=== PATIENT | female | born 1990 | race Caucasian/White ===

== ENCOUNTER 2017-03-19 20:46 | Emergency (ER) | payer MEDICAID, OTHER ==
[2017-03-19 21:05] VITALS: BP 124/91
--- NOTE | 2017-03-19 21:14 | EDM.PDOC ---
ED HPI GENERAL MEDICAL PROBLEM - General Chief Complaint: Lower Extremity Injury/Pain Stated Complaint: LOWER RIGHT LEG PROBLEMS Time Seen by Provider: 03/19/17 21:14 Source of Information: Reports: Patient History Limitations: Reports: No Limitations - History of Present Illness INITIAL COMMENTS - FREE TEXT/NARRATIVE: 26-year-old female attends the ED with concerns of painful right calf and perhaps right lower extremity swelling. She states she was just to [place] over the holidays but no prolonged travel. No history of DVT. She is not on control. Anus worse with walking and particularly going upstairs i.e. significant dorsiflexion of the foot. Also pain when she was kneeling with her buttock on the calf. Came to the ED to make sure that she did not have a blood clot in her leg. She has no signs or symptoms of pulmonary problems with cough pleuritic chest pain or hemoptysis. Onset: Gradual Onset Date: 03/17/17 Duration: Day(s): Location: Reports: Lower Extremity, Right Quality: Reports: Ache (Pain in the right calf over the last 2 and half days. 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: Acetaminophen, NSAIDS Right Leg Pain Score (Numeric/FACES): 3 - Related Data Allergies Allergy/AdvReac Type Severity Reaction Status Date / Time Sulfa (Sulfonamide Allergy Rash Verified 03/19/17 20:56 Antibiotics) sulfamethoxazole Allergy Rash Verified 03/19/17 20:56 [From Bactrim] trimethoprim [From Bactrim] Allergy Rash Verified 03/19/17 20:56 Home Meds: Home Meds Albuterol [Proair HFA] 2 puff INH ASDIRECTED 10/22/14 [History] Buprenorphine [Subutex] 8 mg PO ASDIRECTED 10/22/14 [History] Acetaminophen [Tylenol] 650 mg PO Q6H PRN #0 tablet 05/26/15 [Rx] Ibuprofen [Motrin] 200 - 600 mg PO Q6H PRN #0 tablet 05/26/15 [Rx] Past Medical History - Past Health History Medical/Surgical History: Denies Medical/Surgical History HEENT History: Reports: Impaired Vision Respiratory History: Reports: Asthma Other Respiratory History: Smoker, uses ProAir inhaler approx weekly. [employer] History: Reports: Other OB/BYN History: IUD taken out about 1.5 months ago no period since. Neurological History: Reports: Migraines Psychiatric History: Reports: Addiction, Anxiety Other Psychiatric History: Uses Bupenorphine to prevent cravings. Has used such for 3+ years. Denies relapse. Endocrine/Metabolic History: Reports: Hypothyroidism Other Endocrine/Metabolic History: Diagnosed low thyroid during this - Infectious Disease History Infectious Disease History: Reports: Hepatitis C - Past Surgical History Respiratory Surgical History: Reports: None Endocrine Surgical History: Reports: None Dermatological Surgical History: Reports: None Social & Family History - Family History Family Medical History: Noncontributory - Tobacco Use Smoking Status *Q: Current Every Day Smoker Years of Tobacco use: 10 Packs/Tins Daily: 1 Used Tobacco, but Quit: No Second Hand Smoke Exposure: Yes - Caffeine Use Caffeine Use: Reports: Coffee, Energy Drinks, Soda, Tea - Recreational Drug Use Recreational Drug Use: No Drug Use in Last 12 Months: No Recreational Drug Type: Reports: Methamphetamine Recreational Drug Use Frequency: Not Used In Over 6 Months Recreational Drug Last Use: >5 years ago - Living Situation & Occupation Living situation: Reports: Single Occupation: Unemployed Review of Systems - Review of Systems Review Of Systems: See Below Constitutional: Reports: No Symptoms Eyes: Reports: No Symptoms Ears: Reports: No Symptoms Nose: Reports: No Symptoms Mouth/Throat: Reports: No Symptoms, Difficulty Swallowing Cardiovascular: Reports: No Symptoms GI/Abdominal: Reports: No Symptoms Genitourinary: Reports: No Symptoms Musculoskeletal: Reports: Muscle Pain Skin: Reports: No Symptoms Neurological: Reports: No Symptoms (Right calf. See history of present illness) Psychiatric: Reports: No Symptoms ED EXAM, GENERAL - Physical Exam Exam: See Below Exam Limited By: No Limitations General Appearance: Alert, WD/WN, No Apparent Distress, Anxious (Mildly anxious) Respiratory/Chest: No Respiratory Distress, Lungs Clear, No Accessory Muscle Use , Respiratory Distress (Mild tachypnea at rest 22/m with O2 sats of 99%. I believe this is due to being a little anxious.) Cardiovascular: Normal Peripheral Pulses, Regular Rate, Rhythm, No Edema, No Gallop, No Murmur Extremities: Other (Examination of her lower extremities show the right leg to be perhaps a little larger than the left. However there is no true edema of the right leg. On examination of the right leg pain is localized to the medial aspect of the gastrocnemius muscle on repeated squeezing of this area. Doppler ultrasound carried out of the bedside by myself did not reveal any sign of DVT with normal compressibility and flow on color Motrin.) Neurological: Alert, Oriented, CN II-XII Intact, Normal Cognition Psychiatric: Normal Affect, Normal Mood Skin Exam: Warm, Dry, Intact, Normal Color, No Rash Course - Vital Signs Last Recorded V/S: Last Vital Signs Temp 36.6 C 03/19/17 21: Pulse 83 03/19/17 21: Resp 22 H 03/19/17 21:02 BP 124/91 H 03/19/17 21: Pulse Ox 99 03/19/17 21:02 - Radiology Interpretation Free Text/Narrative:: 26-year-old female presents to the ED for evaluation of right calf pain. Developed is gradually over the last 2-2 and half days. She appreciates pain with dorsiflexion of the ankle particularly walking up stairs. Examination reveals pain localized to the gastrocnemius muscle medially towards the midline mid calf. There is no significant swelling it with good pulses to the foot. Doppler ultrasound bedside by me did not reveal any sign of DVT. Only the veins below the knee were ultrasounded. She reassured calf muscle strain. Motrin 600 mg every 6 hours when necessary as needed for pain relief and heat to the area as needed. Expect gradual improvement over the next 5-7 days. Departure - Departure Time of Disposition: 21:34 Disposition: Home, Self-Care 01 Condition: Fair Clinical Impression: Strain of calf muscle Qualifiers: Encounter type: initial encounter Laterality: right Qualified Code(s): S86.811A - Strain of other muscle(s) and tendon(s) at lower leg level, right leg , initial encounter - Discharge Information Referrals: Nhung Guy PA-C [Primary Care Provider] - Forms: ED Department Discharge Additional Instructions: Evaluation the emergency room tonight in regards to pain in the right calf that is developed over the last few days. Noted particularly in the mid calf with dorsiflexion of the foot and walking and particularly going upstairs. No known injuries. No recent prolonged travel. No history of blood clots in the legs in the past. Examination localizes pain to the medial gastrocnemius muscle near the midline of the calf. Ultrasound performed at the bedside did not show any evidence of blood clots in the deep venous system. Therefore the injury is to calf muscle strain. This usually take 7-10 days to heal. Should you need to be be a leg a bit in terms of not overuse it he pack to the area for one half hour out of every 44-5 hours. Motrin 600 mg every 6 hours or Aleve 2 tablets every 8 hours for pain relief if needed. Expect gradual improvement over the next 5-10 days.
== END 2017-03-19 21:42 | disposition home or self-care (01) ==
LOC: JD.ED 20:46
DX: S86.811A Strain of other muscle(s) and tendon(s) at lower leg level, right leg, initial encounter (principal); J45.909 Unspecified asthma, uncomplicated; E03.9 Hypothyroidism, unspecified; F17.210 Nicotine dependence, cigarettes, uncomplicated; Z88.1 Allergy status to other antibiotic agents; Z88.2 Allergy status to sulfonamides; Z86.718 Personal history of other venous thrombosis and embolism; X58.XXXA Exposure to other specified factors, initial encounter; Y93.01 Activity, walking, marching and hiking
CPT/HCPCS: 99283

== ENCOUNTER 2019-12-14 08:40 | Emergency (ER) | payer OTHER ==
--- NOTE | 2019-12-14 09:57 | EDM.PDOC ---
ED HPI GENERAL MEDICAL PROBLEM - General Chief Complaint: Respiratory Problem Stated Complaint: SOB Time Seen by Provider: 12/14/19 09:46 - History of Present Illness INITIAL COMMENTS - FREE TEXT/NARRATIVE: 29-year-old female presents the emergency room with shortness of breath. Patient has known history of asthma she uses Advair and an albuterol rescue inhaler. None of this seems to be helping. Onset of this was a couple of days ago progressively getting worse. Patient has some chest pressure associated with this. The patient last had a severe asthma attack in March after she was diagnosed with pneumonia she was treated for asthma and pneumonia as an outpatient but her breathing continued to get worse and ultimately she needed to be admitted for this. Patient is unclear of her status she is trying to get but she has not missed any periods as of yet. She has been a little achy but denies fevers or chills no lost of taste or smell no abdominal symptoms. - Related Data Allergies Allergy/AdvReac Type Severity Reaction Status Date / Time Sulfa (Sulfonamide Allergy Rash Verified 12/14/19 08:50 Antibiotics) sulfamethoxazole Allergy Rash Verified 12/14/19 08:50 [From Bactrim] trimethoprim [From Bactrim] Allergy Rash Verified 12/14/19 08:50 Home Meds: Home Meds Albuterol [Proair HFA] 2 puff INH ASDIRECTED 10/22/14 [History] Buprenorphine [Subutex] 8 mg PO ASDIRECTED 10/22/14 [History] Ibuprofen [Motrin] 200 - 600 mg PO Q6H PRN #0 tablet 05/26/15 [Rx] Budesonide [Pulmicort Flexhaler] 1 inhalation INH BID 12/14/19 [History] Fluticasone Propion/Salmeterol [Advair 250-50 Diskus] 1 inhalation PO BID 12/14/19 [History] predniSONE [Prednisone] 20 mg PO Q24H #15 tablet 12/14/19 [Rx] Past Medical History HEENT History: Reports: Impaired Vision Cardiovascular History: Reports: None Respiratory History: Reports: Asthma, TB Other Respiratory History: Smoker [employer] History: Reports: Spontaneous Neurological History: Reports: Migraines Psychiatric History: Reports: Addiction, Anxiety Other Psychiatric History: Uses Bupenorphine to prevent cravings. Has used such for 3+ years. Denies relapse. - Infectious Disease History Infectious Disease History: Reports: Shingles - Past Surgical History Female Surgical History: Reports: D&C Social & Family History - Family History Family Medical History: Noncontributory - Tobacco Use Smoking Status *Q: Current Every Day Smoker Years of Tobacco use: 12 Packs/Tins Daily: 1 - Caffeine Use Caffeine Use: Reports: Soda - Recreational Drug Use Recreational Drug Use: No - Living Situation & Occupation Living situation: Reports: Single Occupation: Unemployed ED ROS GENERAL - Review of Systems Review Of Systems: See Below Constitutional: Denies: Fever, Chills HEENT: Reports: No Symptoms Respiratory: Reports: Shortness of Breath, Wheezing. Denies: Cough, Sputum Cardiovascular: Reports: No Symptoms Endocrine: Reports: No Symptoms GI/Abdominal: Reports: No Symptoms, Mucous in Stool Musculoskeletal: Reports: No Symptoms Skin: Reports: No Symptoms Neurological: Reports: No Symptoms Psychiatric: Reports: No Symptoms Hematologic/Lymphatic: Reports: No Symptoms Immunologic: Reports: No Symptoms ED EXAM, GENERAL - Physical Exam Exam: See Below Exam Limited By: No Limitations General Appearance: Alert, No Apparent Distress Head: Atraumatic, Normocephalic Neck: Normal Inspection, Supple, Non-Tender, Full Range of Motion Respiratory/Chest: No Respiratory Distress, Lungs Clear, Normal Breath Sounds Cardiovascular: Regular Rate, Rhythm, No Murmur, Other (Lower extremity edema that is very mild nonpitting) GI/Abdominal: Normal Bowel Sounds, Soft, Non-Tender Back Exam: Normal Inspection, Full Range of Motion. No: CVA Tenderness (L), CVA Tenderness (R) Extremities: Non-Tender, Pedal Edema (Mild nonpitting) Neurological: Alert, Oriented, Normal Cognition Psychiatric: Anxious (Mild this improved over time) EKG INTERPRETATION EKG Date: 12/14/19 Rhythm: NSR Reading: Normal P-Wave: Present QRS: Other (Normal with low voltage in the limb leads) ST-T: Normal QT: Normal Comparison: No Change (No significant change from 12/2014) Course - Vital Signs Last Recorded V/S: Last Vital Signs Temp 36.8 C 12/14/19 08:46 Pulse 57 L 12/14/19 12:29 Resp 16 12/14/19 12:29 BP 137/84 12/14/19 12:29 Pulse Ox 96 12/14/19 12:29 - Orders/Labs/Meds Orders: Active Orders 24 hr Category Date Time Status EKG Documentation Completion [RC] STAT Care 12/14/19 10:28 Active RT Aerosol Therapy [RC] ASDIRECTED Care 12/14/19 09:58 Active CORONAVIRUS COVID-19 PCR PHL Stat Lab 12/14/19 10:55 Received Sodium Chloride 0.9% [Normal Saline] 100 ml Med 12/14/19 12:00 Active IV ASDIRECTED Sodium Chloride 0.9% [Saline Flush] Med 12/14/19 11:52 Active 10 ml FLUSH ONETIME PRN Medication Orders Sodium Chloride (Normal Saline) 100 mls @ 75 mls/hr IV ASDIRECTED LUDWIG Last Admin: 12/14/19 12:07 Dose: 75 mls/hr Documented by: JOHN Sodium Chloride (Saline Flush) 10 ml FLUSH ONETIME PRN PRN Reason: IV FLUSH Last Admin: 12/14/19 12:07 Dose: 10 ml Documented by: JOHN Labs: Laboratory Tests 12/14/19 12/14/19 12/14/19 Range/Units 10:47 10:47 10:47 WBC 6.56 (3.98-10.04) K/mm3 RBC 4.02 (3.98-5.22) M/mm3 Hgb 12.7 (11.2-15.7) gm/dl Hct 39.1 (34.1-44.9) % MCV 97.3 H D (79.4-94.8) fl MCH 31.6 (25.6-32.2) pg MCHC 32.5 (32.2-35.5) g/dl RDW Std Deviation 43.3 (36.4-46.3) fL Plt Count 201 (182-369) K/mm3 MPV 12.1 (9.4-12.3) fl Neut % (Auto) 57.2 (34.0-71.1) % Lymph % (Auto) 34.5 (19.3-51.7) % [place] % (Auto) 6.6 (4.7-12.5) % Eos % (Auto) 1.2 (0.7-5.8) Baso % (Auto) 0.3 (0.1-1.2) % Neut # (Auto) 3.76 (1.56-6.13) K/mm3 Lymph # (Auto) 2.26 (1.18-3.74) K/mm3 [place] # (Auto) 0.43 H (0.24-0.36) K/mm3 Eos # (Auto) 0.08 (0.04-0.36) K/mm3 Baso # (Auto) 0.02 (0.01-0.08) K/mm3 D-Dimer, Quantitative 0.87 H (0.19-0.50) mg/L Sodium (136-145) mEq/L Potassium (3.5-5.1) mEq/L Chloride (98-107) mEq/L Carbon Dioxide (21-32) mEq/L Anion Gap (5-15) BUN (7-18) mg/dL Creatinine (0.55-1.02) mg/dL Est Cr Clr Drug Dosing mL/min Estimated GFR (MDRD) (>60) mL/min BUN/Creatinine Ratio (14-18) Glucose (74-106) mg/dL Calcium (8.5-10.1) mg/dL Total Bilirubin (0.2-1.0) mg/dL AST (15-37) U/L ALT (14-59) U/L Alkaline Phosphatase (46-116) U/L Troponin I (0.00-0.056) ng/mL Total Protein (6.4-8.2) g/dl Albumin (3.4-5.0) g/dl Globulin gm/dL Albumin/Globulin Ratio (1-2) HCG, Qual Negative (NEGATIVE) 12/14/19 Range/Units 10:47 WBC (3.98-10.04) K/mm3 RBC (3.98-5.22) M/mm3 Hgb (11.2-15.7) gm/dl Hct (34.1-44.9) % MCV (79.4-94.8) fl MCH (25.6-32.2) pg MCHC (32.2-35.5) g/dl RDW Std Deviation (36.4-46.3) fL Plt Count (182-369) K/mm3 MPV (9.4-12.3) fl Neut % (Auto) (34.0-71.1) % Lymph % (Auto) (19.3-51.7) % [place] % (Auto) (4.7-12.5) % Eos % (Auto) (0.7-5.8) Baso % (Auto) (0.1-1.2) % Neut # (Auto) (1.56-6.13) K/mm3 Lymph # (Auto) (1.18-3.74) K/mm3 [place] # (Auto) (0.24-0.36) K/mm3 Eos # (Auto) (0.04-0.36) K/mm3 Baso # (Auto) (0.01-0.08) K/mm3 D-Dimer, Quantitative (0.19-0.50) mg/L Sodium 139 (136-145) mEq/L Potassium 4.2 (3.5-5.1) mEq/L Chloride 104 (98-107) mEq/L Carbon Dioxide 28 (21-32) mEq/L Anion Gap 11.2 (5-15) BUN 13 (7-18) mg/dL Creatinine 1.0 (0.55-1.02) mg/dL Est Cr Clr Drug Dosing 91.11 mL/min Estimated GFR (MDRD) > 60 (>60) mL/min BUN/Creatinine Ratio 13.0 L (14-18) Glucose 87 (74-106) mg/dL Calcium 9.0 (8.5-10.1) mg/dL Total Bilirubin 0.7 (0.2-1.0) mg/dL AST 23 (15-37) U/L ALT 46 (14-59) U/L Alkaline Phosphatase 54 (46-116) U/L Troponin I < 0.017 (0.00-0.056) ng/mL Total Protein 7.1 (6.4-8.2) g/dl Albumin 4.2 (3.4-5.0) g/dl Globulin 2.9 gm/dL Albumin/Globulin Ratio 1.5 (1-2) HCG, Qual (NEGATIVE) Meds: Medications Generic Name Dose Route Start Last Admin Trade Name Freq PRN Reason Stop Dose Admin Sodium Chloride 100 mls @ 75 mls/hr 12/14/19 12:00 12/14/19 12:07 Normal Saline IV 75 mls/hr ASDIRECTED LUDWIG Administration Sodium Chloride 10 ml 12/14/19 11:52 12/14/19 12:07 Saline Flush FLUSH 10 ml ONETIME PRN Administration IV FLUSH Discontinued Medications Generic Name Dose Route Start Last Admin Trade Name Minal PRN Reason Stop Dose Admin Albuterol/Ipratropium 3 ml 12/14/19 09:58 12/14/19 10:18 Duoneb 3.0-0.5 Mg/3 Ml NEB 12/14/19 09:59 3 ml ONETIME ONE Administration Sodium Chloride 500 mls @ 999 mls/hr 12/14/19 11:52 12/14/19 12:24 Normal Saline IV 12/14/19 12:22 999 mls/hr .BOLUS ONE Administration Iopamidol 100 ml 12/14/19 11:52 12/14/19 12:07 Isovue-370 (76%) IVPUSH 12/14/19 11:53 100 ml ONETIME ONE Administration Methylprednisolone Sodium Succinate 125 mg 12/14/19 09:58 12/14/19 10:24 Solu-Medrol IVPUSH 12/14/19 09:59 125 mg ONETIME ONE Administration - Re-Assessments/Exams Free Text/Narrative Re-Assessment/Exam: 12/14/19 12:00 Patient is doing better after a nebulizer treatment albeit it was not immediate. Her d-dimer came back elevated. She does note that she has had increasing lower extremity edema over the last month but this is not really painful. We will follow-up with a CTA hold off on the chest x-ray. COVID is pending as are routine labs. 12/14/19 13:31 CTA is unremarkable for PE or any other acute intrathoracic abnormality. She is noted to have a couple nodules in the right middle lobe it is recommended that she have a follow-up CT without contrast in 1 year I did discuss this with the patient. Patient is feeling much better and really wants to go home at this point we will discharge her on 60 mg of prednisone every morning for the next 5 mornings and then she is to use her albuterol nebulizer at home if her breathing gets worse she has not been using this and chose to use the albuterol inhaler. Departure - Departure Time of Disposition: 13:32 Disposition: Home, Self-Care 01 Clinical Impression: Exacerbation of asthma - Discharge Information Referrals: Malena,Nhung L, PA-C [Primary Care Provider] - Forms: ED Department Discharge Additional Instructions: Return to the emergency room with any questions problems or worsening symptoms. Use your albuterol nebulizer every 4-6 hours if needed and not get an adequate response from your handheld inhaler. You have been given a prescription for prednisone 60 mg every morning for the next 5 days and then stop this. Follow up with your regular healthcare provider the first of this next week for recheck. Discuss the need for a follow-up chest CT without contrast for the nodules seen on today's study. Do not take Naprosyn or ibuprofen while taking the prednisone Sepsis Event Note (ED) - Evaluation Sepsis Screening Result: No Definite Risk - Focused Exam Vital Signs: Vital Signs Temp Pulse Resp BP Pulse Ox Pulse Ox 12/14/19 12:29 57 L 16 137/84 96 12/14/19 10:19 97 12/14/19 08:46 36.8 C 74 22 H 143/101 H 99 - My Orders Last 24 Hours: My Active Orders 12/14/19 09:58 RT Aerosol Therapy [RC] ASDIRECTED 12/14/19 10:28 EKG Documentation Completion [RC] STAT 12/14/19 10:55 CORONAVIRUS COVID-19 PCR PHL Stat 12/14/19 11:52 Sodium Chloride 0.9% [Saline Flush] 10 ml FLUSH ONETIME PRN 12/14/19 12:00 Sodium Chloride 0.9% [Normal Saline] 100 ml IV ASDIRECTED - Assessment/Plan Last 24 Hours: My Active Orders 12/14/19 09:58 RT Aerosol Therapy [RC] ASDIRECTED 12/14/19 10:28 EKG Documentation Completion [RC] STAT 12/14/19 10:55 CORONAVIRUS COVID-19 PCR PHL Stat 12/14/19 11:52 Sodium Chloride 0.9% [Saline Flush] 10 ml FLUSH ONETIME PRN 12/14/19 12:00 Sodium Chloride 0.9% [Normal Saline] 100 ml IV ASDIRECTED
[2019-12-14] MEDS ORDERED: methylPREDNISolone Sodium Succinate 125 MG/2 ML SDV IVPUSH ONE (09:58)
[2019-12-14] MEDS ORDERED: Albuterol/Ipratropium 3.0-0.5 MG/3 ML Neb Soln NEB ONE (09:58)
[2019-12-14] MEDS ORDERED: Sodium Chloride 0.9% 500 ML IV ONE (11:52)
[2019-12-14] MEDS ORDERED: Sodium Chloride 0.9% 10 ML Syringe FLUSH PRN (11:52)
[2019-12-14] MEDS ORDERED: Iopamidol 755 Mg/ML 100 ML Bottle IVPUSH ONE (11:52)
[2019-12-14] MEDS ORDERED: Sodium Chloride 0.9% 100 ML IV SCH (12:00)
[2019-12-14 12:30] VITALS: BP 137/84; PULSE 57
--- NOTE | 2019-12-14 12:43 | CT ---
CT chest Technique: Multiple axial sections through the chest were obtained. Intravenous contrast was utilized. Study performed as a pulmonary angiogram protocol. Findings: Pulmonary arteries are well-opacified. No filling defects are seen to indicate pulmonary embolism. Aorta shows no aneurysm. No pericardial thickening is seen. Visualized upper abdominal structures show nothing acute. Mediastinum and hilar regions show no adenopathy. No axillary adenopathy is appreciated. 2 pulmonary nodules are noted within the right middle lobe with largest measuring 8 mm. No additional nodule is seen within either side of the chest. Slight scarring is felt to be present within the right middle lobe along the mediastinum. No acute parenchymal change is appreciated. Impression: 1. No findings of pulmonary embolism. 2. 2 nodules within the right middle lobe. Recommend follow-up chest CT without contrast in one year. 3. Nothing acute is appreciated on CT study of the chest. Diagnostic code #9 This report was dictated in MDT
== END 2019-12-14 13:52 | disposition home or self-care (01) ==
LOC: JD.ED 08:40
DX: J45.901 Unspecified asthma with (acute) exacerbation (principal); R60.0 Localized edema; R79.1 Abnormal coagulation profile; F17.210 Nicotine dependence, cigarettes, uncomplicated; Z88.2 Allergy status to sulfonamides; Z20.828 Contact with and (suspected) exposure to other viral communicable diseases
CPT/HCPCS: 36415; 71275; 80053; 84484; 84703; 85025; 85379; 87635; 93005; 94640; 96361; 96374; 99285; J2930; J7030; J7050; Q9967; 71046; 93010; 99283; J7620-GY; U0002

== ENCOUNTER 2019-12-18 12:53 | Emergency (ER) | payer OTHER ==
[2019-12-18 13:15] VITALS: BP 161/88; PULSE 58
--- NOTE | 2019-12-18 13:38 | EDM.PDOC ---
ED HPI GENERAL MEDICAL PROBLEM - General Chief Complaint: Respiratory Problem Stated Complaint: SOB Time Seen by Provider: 12/18/19 13:16 Source of Information: Reports: Patient History Limitations: Reports: No Limitations - History of Present Illness INITIAL COMMENTS - FREE TEXT/NARRATIVE: Patient is a 29-year-old female presenting to the emergency department with complaints of ongoing shortness of breath. She was seen in this emergency department 4 days ago with the same complaint. Lab work and CT angiogram of the chest, were completed and were found to be overall normal. She was COVID tested that day as well and found to be negative. She complains of feeling of tightness in her chest like it is hard to take a deep breath. She has generalized body aches as well as back pain. She has been taking prednisone 60 mg daily since her visit to the ER she feels that this did help with the lung symptoms. She no longer feels wheezy, however, she states she hurts all over. She describes pain in her chest wall that radiates into her mid-back. She also verbalizes that she has had problems with feelling bloated and feeling like she is retaining fluid. She denies any abdominal pain, nausea, vomiting, or diarrhea. She has had no known fevers that she is aware of. Patient does have a history of asthma for which she has been using her Pulmicort, Advair, and albuterol rescue inhaler. Vital signs on triage were stable. Blood pressure 161/88, pulse 58, respiratory rate 20, oxygen saturation 98% on room air. She was afebrile at 98.9. Treatments REFRIGERATION MANAGER: Reports: Other (see below) Other Treatments REFRIGERATION MANAGER: tylenol Middle Chest Pain Score (Numeric/FACES): 4 - Related Data Allergies Allergy/AdvReac Type Severity Reaction Status Date / Time Sulfa (Sulfonamide Allergy Severe Rash Verified 12/18/19 13:09 Antibiotics) sulfamethoxazole Allergy Severe Rash Verified 12/18/19 13:09 [From Bactrim] trimethoprim [From Bactrim] Allergy Severe Rash Verified 12/18/19 13:09 Home Meds: Home Meds Albuterol [Proair HFA] 2 puff INH ASDIRECTED 10/22/14 [History] Buprenorphine [Subutex] 8 mg PO TID 10/22/14 [History] Budesonide [Pulmicort Flexhaler] 1 inhalation INH BID 12/14/19 [History] Fluticasone Propion/Salmeterol [Advair 250-50 Diskus] 1 inhalation PO BID 12/14/19 [History] predniSONE [Prednisone] 20 mg PO Q24H #15 tablet 12/14/19 [Rx] Cyclobenzaprine [Flexeril] 5 mg PO Q8H PRN #10 tab 12/18/19 [Rx] Past Medical History HEENT History: Reports: Impaired Vision Cardiovascular History: Reports: None Respiratory History: Reports: Asthma, TB Other Respiratory History: Smoker 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 Has used such for 3+ years. Denies relapse. - Infectious Disease History Infectious Disease History: Reports: Shingles - Past Surgical History Female Surgical History: Reports: D&C Social & Family History - Family History Family Medical History: Noncontributory - Tobacco Use Smoking Status *Q: Current Every Day Smoker Years of Tobacco use: 12 Packs/Tins Daily: 0.5 - Caffeine Use Caffeine Use: Reports: Coffee, Energy Drinks, Soda, Tea - Recreational Drug Use Recreational Drug Use: No - Living Situation & Occupation Living situation: Reports: Single Occupation: Unemployed ED ROS GENERAL - Review of Systems Review Of Systems: See Below Constitutional: Reports: Fatigue. Denies: Fever, Chills HEENT: Reports: No Symptoms Respiratory: Reports: Shortness of Breath, Wheezing, Pleuritic Chest Pain Cardiovascular: Reports: Edema Endocrine: Reports: No Symptoms GI/Abdominal: Reports: No Symptoms : Reports: No Symptoms Musculoskeletal: Reports: Other (Back pain and generalized body aches.) Skin: Reports: No Symptoms Neurological: Reports: No Symptoms Psychiatric: Reports: No Symptoms Hematologic/Lymphatic: Reports: No Symptoms Immunologic: Reports: No Symptoms ED EXAM, GENERAL - Physical Exam Exam: See Below General Appearance: Alert, WD/WN, No Apparent Distress Respiratory/Chest: No Respiratory Distress, Lungs Clear, Normal Breath Sounds, No Accessory Muscle Use, Chest Non-Tender Cardiovascular: Normal Peripheral Pulses, Regular Rate, Rhythm, No Edema, No Gallop, No JVD, No Murmur, No Rub Neurological: Alert, Oriented, CN II-XII Intact, Normal Cognition, Normal Gait, Normal Reflexes, No Motor/Sensory Deficits Psychiatric: Normal Affect, Normal Mood Skin Exam: Warm, Dry, Intact, Normal Color, No Rash Course - Vital Signs Last Recorded V/S: Last Vital Signs Temp 98.9 F 12/18/19 13:12 Pulse 58 L 12/18/19 13:12 Resp 20 12/18/19 13:12 BP 161/88 H 12/18/19 13:12 Pulse Ox 98 12/18/19 13:12 - Orders/Labs/Meds Orders: Active Orders 24 hr Category Date Time Status EKG Documentation Completion [RC] STAT Care 12/18/19 13:31 Active Labs: Laboratory Tests 12/18/19 12/18/19 12/18/19 Range/Units 13:38 13:38 13:38 WBC 10.88 H (3.98-10.04) K/mm3 RBC 3.81 L (3.98-5.22) M/mm3 Hgb 11.8 (11.2-15.7) gm/dl Hct 37.1 (34.1-44.9) % MCV 97.4 H (79.4-94.8) fl MCH 31.0 (25.6-32.2) pg MCHC 31.8 L (32.2-35.5) g/dl RDW Std Deviation 45.1 (36.4-46.3) fL Plt Count 221 (182-369) K/mm3 MPV 12.2 (9.4-12.3) fl Neut % (Auto) 62.3 (34.0-71.1) % Lymph % (Auto) 31.0 (19.3-51.7) % Hamblen % (Auto) 6.1 (4.7-12.5) % Eos % (Auto) 0.3 L (0.7-5.8) Baso % (Auto) 0.1 (0.1-1.2) % Neut # (Auto) 6.79 H (1.56-6.13) K/mm3 Lymph # (Auto) 3.37 (1.18-3.74) K/mm3 Hamblen # (Auto) 0.66 H (0.24-0.36) K/mm3 Eos # (Auto) 0.03 L (0.04-0.36) K/mm3 Baso # (Auto) 0.01 (0.01-0.08) K/mm3 D-Dimer, Quantitative 0.63 H (0.19-0.50) mg/L Sodium 141 (136-145) mEq/L Potassium 3.5 (3.5-5.1) mEq/L Chloride 105 (98-107) mEq/L Carbon Dioxide 29 (21-32) mEq/L Anion Gap 10.5 (5-15) BUN 16 (7-18) mg/dL Creatinine 0.9 (0.55-1.02) mg/dL Est Cr Clr Drug Dosing 101.23 mL/min Estimated GFR (MDRD) > 60 (>60) mL/min BUN/Creatinine Ratio 17.8 (14-18) Glucose 91 (74-106) mg/dL Calcium 9.0 (8.5-10.1) mg/dL Ferritin (8-252) ng/ml Total Bilirubin 0.3 (0.2-1.0) mg/dL AST 17 (15-37) U/L ALT 67 H (14-59) U/L Alkaline Phosphatase 50 (46-116) U/L Lactate Dehydrogenase 199 (81-234) U/L Troponin I < 0.017 (0.00-0.056) ng/mL C-Reactive Protein <0.2 (<1.0) mg/dL NT-Pro-B Natriuret Pep (0-125) pg/mL Total Protein 6.6 (6.4-8.2) g/dl Albumin 3.7 (3.4-5.0) g/dl Globulin 2.9 gm/dL Albumin/Globulin Ratio 1.3 (1-2) 12/18/19 12/18/19 Range/Units 13:38 13:38 WBC (3.98-10.04) K/mm3 RBC (3.98-5.22) M/mm3 Hgb (11.2-15.7) gm/dl Hct (34.1-44.9) % MCV (79.4-94.8) fl MCH (25.6-32.2) pg MCHC (32.2-35.5) g/dl RDW Std Deviation (36.4-46.3) fL Plt Count (182-369) K/mm3 MPV (9.4-12.3) fl Neut % (Auto) (34.0-71.1) % Lymph % (Auto) (19.3-51.7) % Hamblen % (Auto) (4.7-12.5) % Eos % (Auto) (0.7-5.8) Baso % (Auto) (0.1-1.2) % Neut # (Auto) (1.56-6.13) K/mm3 Lymph # (Auto) (1.18-3.74) K/mm3 Hamblen # (Auto) (0.24-0.36) K/mm3 Eos # (Auto) (0.04-0.36) K/mm3 Baso # (Auto) (0.01-0.08) K/mm3 D-Dimer, Quantitative (0.19-0.50) mg/L Sodium (136-145) mEq/L Potassium (3.5-5.1) mEq/L Chloride (98-107) mEq/L Carbon Dioxide (21-32) mEq/L Anion Gap (5-15) BUN (7-18) mg/dL Creatinine (0.55-1.02) mg/dL Est Cr Clr Drug Dosing mL/min Estimated GFR (MDRD) (>60) mL/min BUN/Creatinine Ratio (14-18) Glucose (74-106) mg/dL Calcium (8.5-10.1) mg/dL Ferritin 17 (8-252) ng/ml Total Bilirubin (0.2-1.0) mg/dL AST (15-37) U/L ALT (14-59) U/L Alkaline Phosphatase (46-116) U/L Lactate Dehydrogenase (81-234) U/L Troponin I (0.00-0.056) ng/mL C-Reactive Protein (<1.0) mg/dL NT-Pro-B Natriuret Pep 626 H (0-125) pg/mL Total Protein (6.4-8.2) g/dl Albumin (3.4-5.0) g/dl Globulin gm/dL Albumin/Globulin Ratio (1-2) - Re-Assessments/Exams Free Text/Narrative Re-Assessment/Exam: 12/18/19 14:51 Hematology was significant for WBC elevated at 10.88, d-dimer 0.63, proBNP is 626. The elevation in WBC is to be expected since she is on prednisone. D- dimer elevation of 0.63 is actually a decrease from the 0.87 that it was 4 days ago. She had a CT angiogram of her chest done at that time and it was negative for PE; therefore, I do not feel that this test needs to be repeated today. Chest xray and EKG were normal. Patient feels like she is retaining fluid which would explain the proBNP of 626. Toradol was offered for pain and she declined. We will try a prescription for Flexeril to help relax the muscles in her back and chest wall. Discussed that she should follow-up with her primary care provider, STELLA Valentino, to discuss her fluid retention and possibility have been having an echocardiogram completed. She verbalized understanding of this. Discharge instructions as documented. Departure - Departure Time of Disposition: 14:52 Disposition: Home, Self-Care 01 Condition: Good Clinical Impression: Shortness of breath - Discharge Information *PRESCRIPTION DRUG MONITORING PROGRAM REVIEWED*: No *COPY OF PRESCRIPTION DRUG MONITORING REPORT IN PATIENT TANIYA: No Prescriptions: Cyclobenzaprine [Flexeril] 5 mg PO Q8H PRN #10 tab PRN Reason: Muscle Spasm Instructions: Shortness of Breath, Adult, [id number] Referrals: Nhung uGy PA-C [Primary Care Provider] - Forms: ED Department Discharge Additional Instructions: You were seen in the emergency department today for ongoing shortness of breath. Your work-up included blood work, chest x-ray, and an EKG of your heart. Your work-up was found to be overall normal with the exception of a slight elevation in your BNP which supports that you are likely retaining fluid. Recommend that you continue the prednisone that you are prescribed. As we discussed, your shortness of breath may be related to tension in your chest wall. A prescription for Flexeril has been sent to [facility]. Try this medication and see if it helps. I would recommend follow-up with your primary care provider at her next available visit to discuss the possibility of an outpatient echocardiogram as well as treatment options for your fluid retention. Return to the ER for any new or worsening symptoms of concern. Sepsis Event Note (ED) - Evaluation Sepsis Screening Result: No Definite Risk - Focused Exam Vital Signs: Vital Signs Temp Pulse Resp BP Pulse Ox 12/18/19 13:12 98.9 F 58 L 20 161/88 H 98 - My Orders Last 24 Hours: My Active Orders 12/18/19 13:31 EKG Documentation Completion [RC] STAT - Assessment/Plan Last 24 Hours: My Active Orders 12/18/19 13:31 EKG Documentation Completion [RC] STAT
--- NOTE | 2019-12-18 13:53 | CR ---
Chest: Portable view of the chest was obtained. Comparison: Prior chest CT study of 12/14/19. Heart size is slightly prominent but felt accentuated from portable technique. Lungs are clear with no acute parenchymal change. Bony structures are grossly intact. Impression: 1. Findings as noted above. Nothing acute is suspected on portable chest x-ray. Diagnostic code #2 This report was dictated in MDT
== END 2019-12-18 15:10 | disposition home or self-care (01) ==
LOC: JD.ED 12:53
DX: R06.02 Shortness of breath (principal); J45.909 Unspecified asthma, uncomplicated; F17.210 Nicotine dependence, cigarettes, uncomplicated; Z88.2 Allergy status to sulfonamides; Z88.1 Allergy status to other antibiotic agents; Z79.899 Other long term (current) drug therapy
CPT/HCPCS: 36415; 71045; 71045-26; 80053; 82728; 83615; 83880; 84484; 85025; 85379; 86140; 93005; 93010; 99283; 99285-25

== ENCOUNTER 2020-01-22 12:55 | Emergency (ER) | payer OTHER ==
[2020-01-22 13:04] VITALS: BP 156/91; PULSE 86
--- NOTE | 2020-01-22 13:31 | EDM.PDOC ---
ED HPI GENERAL MEDICAL PROBLEM - General Chief Complaint: Asthma Stated Complaint: ASTHMA OUT OF INHALER Time Seen by Provider: 01/22/20 13:06 Source of Information: Reports: Patient, RN Notes Reviewed - History of Present Illness INITIAL COMMENTS - FREE TEXT/NARRATIVE: 29 yr old female with onset of cough, congestion, wheezing yesterday that continues today. No fever, chills, Leos or other unusual sx. Hx of asthma. Is our of her inhaler and neb. meds. - Related Data Allergies Allergy/AdvReac Type Severity Reaction Status Date / Time Sulfa (Sulfonamide Allergy Severe Rash Verified 12/18/19 13:09 Antibiotics) sulfamethoxazole Allergy Severe Rash Verified 12/18/19 13:09 [From Bactrim] trimethoprim [From Bactrim] Allergy Severe Rash Verified 12/18/19 13:09 Home Meds: Home Meds Albuterol [Proair HFA] 2 puff INH ASDIRECTED 10/22/14 [History] Buprenorphine [Subutex] 8 mg PO TID 10/22/14 [History] Budesonide [Pulmicort Flexhaler] 1 inhalation INH BID 12/14/19 [History] Fluticasone Propion/Salmeterol [Advair 250-50 Diskus] 1 inhalation PO BID 12/14/19 [History] predniSONE [Prednisone] 20 mg PO Q24H #15 tablet 12/14/19 [Rx] Cyclobenzaprine [Flexeril] 5 mg PO Q8H PRN #10 tab 12/18/19 [Rx] Past Medical History HEENT History: Reports: Impaired Vision Cardiovascular History: Reports: None Respiratory History: Reports: Asthma, TB Other Respiratory History: Smoker 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 Has used such for 3+ years. Denies relapse. - Infectious Disease History Infectious Disease History: Reports: Shingles - Past Surgical History Female Surgical History: Reports: D&C Social & Family History - Family History Family Medical History: Noncontributory - Tobacco Use Tobacco Use Status *Q: Current Every Day Tobacco User Years of Tobacco use: 15 Packs/Tins Daily: 1 - Caffeine Use Caffeine Use: Reports: Coffee, Energy Drinks, Soda, Tea - Living Situation & Occupation Living situation: Reports: Single Occupation: Unemployed ED ROS GENERAL - Review of Systems Review Of Systems: See Below Constitutional: Denies: Fever, Chills HEENT: Reports: Rhinitis. Denies: Throat Pain Respiratory: Reports: Shortness of Breath, Wheezing, Cough Cardiovascular: Denies: Chest Pain GI/Abdominal: Denies: Abdominal Pain, Vomiting Musculoskeletal: Reports: No Symptoms Skin: Reports: No Symptoms Neurological: Reports: No Symptoms ED EXAM, GENERAL - Physical Exam Exam: See Below General Appearance: Alert, No Apparent Distress Head: Atraumatic Neck: Supple Respiratory/Chest: Wheezing (mild bilat). No: Respiratory Distress, Rhonchi Extremities: Normal Inspection. No: Pedal Edema, Leg Pain, Redness Neurological: Alert, Oriented, No Motor/Sensory Deficits Skin Exam: Warm, Dry, Normal Color Course - Vital Signs Last Recorded V/S: Last Vital Signs Temp 99.0 F 01/22/20 13:02 Pulse 86 01/22/20 13:02 Resp 16 01/22/20 13:02 BP 156/91 H 01/22/20 13:02 Pulse Ox 95 01/22/20 13:02 - Orders/Labs/Meds Orders: Active Orders 24 hr Category Date Time Status CORONAVIRUS COVID-19 PCR [facility] Stat Lab 01/22/20 13:25 Ordered Departure - Departure Time of Disposition: 13:26 Disposition: Home, Self-Care 01 Condition: Fair Clinical Impression: Viral syndrome Asthma Qualifiers: Asthma severity: unspecified severity Asthma persistence: intermittent Asthma complication type: with acute exacerbation Qualified Code(s): J45.21 - Mild intermittent asthma with (acute) exacerbation - Discharge Information Referrals: Nhung Guy PA-C [Primary Care Provider] - Forms: ED Department Discharge Additional Instructions: Prescriptions have been provided for albuterol inhaler and nebulizer. Covid screen has been done to sent to [facility]. We will call you results when they are available, usually 2 to 3 days. Self Isolate until you hear results of the covid screen. Follow up clinic as needed, return to ED as needed. Sepsis Event Note (ED) - Evaluation Sepsis Screening Result: No Definite Risk - Focused Exam Vital Signs: Vital Signs Temp Pulse Resp BP Pulse Ox 01/22/20 13:02 99.0 F 86 16 156/91 H 95 - My Orders Last 24 Hours: My Active Orders 01/22/20 13:25 CORONAVIRUS COVID-19 PCR [facility] Stat - Assessment/Plan Last 24 Hours: My Active Orders 01/22/20 13:25 CORONAVIRUS COVID-19 PCR [facility] Stat
== END 2020-01-22 14:07 | disposition home or self-care (01) ==
LOC: JD.ED 12:55
DX: J45.21 Mild intermittent asthma with (acute) exacerbation (principal); B34.9 Viral infection, unspecified; F17.210 Nicotine dependence, cigarettes, uncomplicated; Z88.2 Allergy status to sulfonamides; Z88.1 Allergy status to other antibiotic agents; Z79.899 Other long term (current) drug therapy; Z20.828 Contact with and (suspected) exposure to other viral communicable diseases
CPT/HCPCS: 99283; U0002

== ENCOUNTER 2020-04-04 12:51 | Emergency (ER) | payer OTHER ==
[2020-04-04 13:05] VITALS: BP 112/67; PULSE 81
--- NOTE | 2020-04-04 13:24 | EDM.PDOC ---
ED HPI GENERAL MEDICAL PROBLEM - General Chief Complaint: Chest Pain Stated Complaint: CHEST PAIN Time Seen by Provider: 04/04/20 12:58 Source of Information: Reports: Patient History Limitations: Reports: No Limitations - History of Present Illness INITIAL COMMENTS - FREE TEXT/NARRATIVE: 29-year-old female presents the emergency department with complaints of left chest pain that started this morning when she woke. Patient states she has had this pain in the past and she does have a history of anxiety. Reports that if she did not come to the emergency department to have the chest pain evaluated it would have stressed her out and she would have been unable to sleep. She states that she has had increased stress levels lately as work has become more chaotic. She states she generally sleeps on her left side and this is more left chest wall pain into her left shoulder reproducible with palpation. Is not worse or better with deep inspiration. She does note an increased cough however she is attempting to quit smoking and states that since then she has had more sputum. Denies any fever, chills, shortness of breath, or palpitations associated with the chest pain. She states she did take 600 mg of ibuprofen shortly before arrival to the emergency department. 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 Chest Pain Score (Numeric/FACES): 2 - Related Data Allergies Allergy/AdvReac Type Severity Reaction Status Date / Time Sulfa (Sulfonamide Allergy Severe Rash Verified 04/04/20 12:58 Antibiotics) sulfamethoxazole Allergy Severe Rash Verified 04/04/20 12:58 [From Bactrim] trimethoprim [From Bactrim] Allergy Severe Rash Verified 04/04/20 12:58 Home Meds: Home Meds Albuterol [Proair HFA] 2 puff INH ASDIRECTED 10/22/14 [History] Buprenorphine [Subutex] 8 mg PO TID 10/22/14 [History] predniSONE [Prednisone] 20 mg PO Q24H #15 tablet 12/14/19 [Rx] Budesonide/Formoterol Fumarate [Symbicort 160-4.5 Mcg Inhaler] 6 gm IH ASDIRECTED 04/04/20 [History] Past Medical History HEENT History: Reports: Impaired Vision Cardiovascular History: Reports: None Respiratory History: Reports: Asthma, TB Other Respiratory History: Smoker Gastrointestinal History: Reports: None Genitourinary History: Reports: None 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 Has used such for 3+ years. Denies relapse. Endocrine/Metabolic History: Reports: None Hematologic History: Reports: None Immunologic History: Reports: None Oncologic (Cancer) History: Reports: None Dermatologic History: Reports: None - Infectious Disease History Infectious Disease History: Reports: Shingles - Past Surgical History HEENT Surgical History: Reports: Oral Surgery Female Surgical History: Reports: D&C Social & Family History - Family History Family Medical History: No Pertinent Family History Cardiac: Reports: AR Oncologic: Reports: Breast - Tobacco Use Tobacco Use Status *Q: Current Every Day Tobacco User Years of Tobacco use: 10 Packs/Tins Daily: 1 - Caffeine Use Caffeine Use: Reports: Energy Drinks, Soda - Recreational Drug Use Recreational Drug Use: Yes Drug Use in Last 12 Months: No Recreational Drug Type: Reports: Marijuana/Hashish, Methamphetamine - Living Situation & Occupation Living situation: Reports: Single Occupation: Unemployed ED ROS GENERAL - Review of Systems Review Of Systems: See Below Constitutional: Reports: No Symptoms. Denies: Fever, Chills HEENT: Reports: No Symptoms Respiratory: Reports: No Symptoms, Cough, Sputum (Patient contributes this to quitting smoking). Denies: Shortness of Breath, Pleuritic Chest Pain Cardiovascular: Reports: Chest Pain (Left chest wall and shoulder). Denies: Dyspnea on Exertion, Edema, Orthopnea, Palpitations, Syncope Endocrine: Reports: No Symptoms GI/Abdominal: Reports: No Symptoms : Reports: No Symptoms Musculoskeletal: Reports: Shoulder Pain (Left) Skin: Reports: No Symptoms Neurological: Reports: No Symptoms Psychiatric: Reports: Anxiety Hematologic/Lymphatic: Reports: No Symptoms Immunologic: Reports: No Symptoms ED EXAM, GENERAL - Physical Exam Exam: See Below Exam Limited By: No Limitations General Appearance: Alert, WD/WN, Anxious Eye Exam: Bilateral Eye: PERRL Ears: Hearing Grossly Normal Nose: Normal Inspection Throat/Mouth: Normal Voice, No Airway Compromise Head: Atraumatic, Normocephalic Neck: Normal Inspection, Supple, Non-Tender, Full Range of Motion Respiratory/Chest: No Respiratory Distress, Lungs Clear, Normal Breath Sounds, No Accessory Muscle Use, Chest Non-Tender Cardiovascular: Normal Peripheral Pulses, Regular Rate, Rhythm, No Edema, No Murmur Peripheral Pulses: 2+: Radial (L), Radial (R) GI/Abdominal: Normal Bowel Sounds, Soft, Non-Tender, No Distention (Female) Exam: Deferred Rectal (Female) Exam: Deferred Back Exam: Normal Inspection, Full Range of Motion Extremities: Normal Inspection, Normal Range of Motion, Non-Tender, No Pedal Edema, Normal Capillary Refill Neurological: Alert, Oriented, Normal Cognition Psychiatric: Normal Mood, Anxious Skin Exam: Warm, Dry, Intact, Normal Color, No Rash Lymphatic: No Adenopathy #1 Interpretation EKG Date: 04/04/20 Time: 13:00 Rhythm: NSR Rate (Beats/Min): 79 Eastern: Normal P-Wave: Present QRS: Normal ST-T: Normal QT: Normal Comparison: NA - No Prior EKG Course - Vital Signs Text/Narrative:: 29-year-old female presents to the emergency department with left chest wall pain. She states that when she woke this morning she noticed the pain and it has been persistent and aching. She denies any shortness of breath, diaphoresis, palpitations or dizziness associated with this. Pain is no worse or better with deep inspiration however it is reproducible and exacerbated with palpation to left chest wall and left shoulder. Patient does contribute this to anxiety as she states she is highly anxious. I have ordered a CBC, CMP, troponin, EKG and a portable chest x-ray. I suspect this is muscular in origin however we will rule out any cardiac origin. Last Recorded V/S: Last Vital Signs Temp 98.8 F 04/04/20 13:02 Pulse 81 04/04/20 13:02 Resp 18 04/04/20 13:02 BP 112/67 04/04/20 13:02 Pulse Ox 97 04/04/20 13:02 - Orders/Labs/Meds Orders: Active Orders 24 hr Category Date Time Status EKG 12 Lead [EKG Documentation Completion] [RC] STAT Care 04/04/20 13:00 Active Labs: Laboratory Tests 04/04/20 04/04/20 Range/Units 13:42 13:42 WBC 6.95 (3.98-10.04) K/mm3 RBC 4.24 (3.98-5.22) M/mm3 Hgb 13.4 D (11.2-15.7) gm/dl Hct 40.1 (34.1-44.9) % MCV 94.6 (79.4-94.8) fl MCH 31.6 (25.6-32.2) pg MCHC 33.4 (32.2-35.5) g/dl RDW Std Deviation 40.4 (36.4-46.3) fL Plt Count 209 (182-369) K/mm3 MPV 12.3 (9.4-12.3) fl Neut % (Auto) 59.0 (34.0-71.1) % Lymph % (Auto) 32.1 (19.3-51.7) % [place] % (Auto) 5.3 (4.7-12.5) % Eos % (Auto) 3.2 (0.7-5.8) Baso % (Auto) 0.3 (0.1-1.2) % Neut # (Auto) 4.10 (1.56-6.13) K/mm3 Lymph # (Auto) 2.23 (1.18-3.74) K/mm3 [place] # (Auto) 0.37 H (0.24-0.36) K/mm3 Eos # (Auto) 0.22 (0.04-0.36) K/mm3 Baso # (Auto) 0.02 (0.01-0.08) K/mm3 Sodium 139 (136-145) mEq/L Potassium 3.9 (3.5-5.1) mEq/L Chloride 104 (98-107) mEq/L Carbon Dioxide 24 (21-32) mEq/L Anion Gap 14.9 (5-15) BUN 12 (7-18) mg/dL Creatinine 0.8 (0.55-1.02) mg/dL Est Cr Clr Drug Dosing 113.88 mL/min Estimated GFR (MDRD) > 60 (>60) mL/min BUN/Creatinine Ratio 15.0 (14-18) Glucose 92 (74-106) mg/dL Calcium 9.1 (8.5-10.1) mg/dL Total Bilirubin 0.5 (0.2-1.0) mg/dL AST 14 L (15-37) U/L ALT 23 (14-59) U/L Alkaline Phosphatase 59 (46-116) U/L Troponin I < 0.017 (0.00-0.056) ng/mL Total Protein 7.2 (6.4-8.2) g/dl Albumin 4.0 (3.4-5.0) g/dl Globulin 3.2 gm/dL Albumin/Globulin Ratio 1.3 (1-2) - Re-Assessments/Exams Free Text/Narrative Re-Assessment/Exam: 04/04/20 13:37 Nothing acute is appreciated on portable chest xray. 04/04/20 14:51 Cbc, and CMP are unremarkable. Troponin is negative at <0.017. Pt's chest discomfort is likely musculoskeletal in origin as she slept on her left side last night. Pt Will be discharged to home with instructions to take Ibuprofen 600mg for the next 48 hours with food. Pt is agreeable to this plan. Departure - Departure Time of Disposition: 14:46 Disposition: Home, Self-Care 01 Condition: Good Clinical Impression: Atypical chest pain Instructions: Chest Wall Pain, [id number] Referrals: Nhung Guy PA-C [Primary Care Provider] - Forms: ED Department Discharge Additional Instructions: You were seen in the Emergency department with complaints of left chest pain. Cardiac workup which included, blood work, EKG, and chest xray were all unremarkable. It is likely that your chest pain is musculoskeletal in origin. Recommend that you take Ibuprofen 600mg every 6 hours for the next 48 hours. Be sure to take this with food. May use ice or heat to your left shoulder for comfort. Follow up with your primary care provider in about a week if you continue to experience discomfort. Should your condition worsen or change, please return to the Emergency Department. Sepsis Event Note (ED) - Evaluation Sepsis Screening Result: No Definite Risk - Focused Exam Vital Signs: Vital Signs Temp Pulse Resp BP Pulse Ox 04/04/20 13:02 98.8 F 81 18 112/67 97 - My Orders Last 24 Hours: My Active Orders 04/04/20 13:00 EKG 12 Lead [EKG Documentation Completion] [RC] STAT - Assessment/Plan Last 24 Hours: My Active Orders 04/04/20 13:00 EKG 12 Lead [EKG Documentation Completion] [RC] STAT
--- NOTE | 2020-04-04 14:13 | CR ---
Chest: Portable view of the chest was obtained. Comparison: Prior chest x-ray of 10/17/19. Heart size and mediastinum are normal. Lungs show no definite acute parenchymal change. Bony structures are unremarkable. Impression: 1. Nothing acute is seen on portable chest x-ray. Diagnostic code #1
== END 2020-04-04 15:02 | disposition home or self-care (01) ==
LOC: JD.ED 12:51
DX: R07.89 Other chest pain (principal); J45.909 Unspecified asthma, uncomplicated; F17.200 Nicotine dependence, unspecified, uncomplicated; Z88.2 Allergy status to sulfonamides; Z88.1 Allergy status to other antibiotic agents
CPT/HCPCS: 36415; 71045; 71045-26; 80053; 84484; 85025; 93005; 93010; 99284; 99285-25

== ENCOUNTER 2020-05-27 09:46 | Emergency (ER) | payer OTHER ==
[2020-05-27 10:05] VITALS: BP 146/78; PULSE 96
--- NOTE | 2020-05-27 10:22 | EDM.PDOC ---
ED HPI GENERAL MEDICAL PROBLEM - General Chief Complaint: Head Injury Stated Complaint: HEAD INJURY Time Seen by Provider: 05/27/20 10:10 Source of Information: Reports: Patient History Limitations: Reports: No Limitations - History of Present Illness INITIAL COMMENTS - FREE TEXT/NARRATIVE: 29-year-old female presents to the ED after falling off of a chair at the [employer]. She states the tipped over backwards and she struck her head hard left occipital aspect on the corner of the chair behind her. She was dazed but she does not believe she lost consciousness. She was very nauseated initially this is slowly improving and she has a headache. Also has diffuse cervical neck pain but has full range of motion. Denies injuries to any other body parts. No open wounds or bleeding from the left occipital head wound. Onset: Today, Sudden Onset Date: 05/27/20 Onset Time: 09:30 Duration: Minutes: Location: Reports: Head Quality: Reports: Ache (Due to the left occipital head), Throbbing Severity: Moderate Improves with: Reports: None Worsens with: Reports: Other Context: Reports: Trauma (Blunt force trauma when the chair she was sitting on tipped over backwards.). Denies: Activity (Touch of the area.), Exercise, Lifting, Sick Contact Treatments NOTEMAN: Reports: Acetaminophen Left Headache Pain Score (Numeric/FACES): 7 - Related Data Allergies Allergy/AdvReac Type Severity Reaction Status Date / Time Sulfa (Sulfonamide Allergy Severe Rash Verified 05/27/20 10:16 Antibiotics) sulfamethoxazole Allergy Severe Rash Verified 05/27/20 10:16 [From Bactrim] trimethoprim [From Bactrim] Allergy Severe Rash Verified 05/27/20 10:16 Home Meds: Home Meds Albuterol [Proair HFA] 2 puff INH ASDIRECTED 10/22/14 [History] Buprenorphine [Subutex] 8 mg PO TID 10/22/14 [History] Budesonide/Formoterol Fumarate [Symbicort 160-4.5 Mcg Inhaler] 6 gm IH ASDIRECTED 04/04/20 [History] predniSONE [Prednisone] 20 mg PO Q24H PRN 05/27/20 [History] Past Medical History HEENT History: Reports: Impaired Vision Cardiovascular History: Reports: None Respiratory History: Reports: Asthma, TB Other Respiratory History: Smoker Gastrointestinal History: Reports: None Genitourinary History: Reports: None 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 Has used such for 3+ years. Denies relapse. Endocrine/Metabolic History: Reports: None Hematologic History: Reports: None Immunologic History: Reports: None Oncologic (Cancer) History: Reports: None Dermatologic History: Reports: None - Infectious Disease History Infectious Disease History: Reports: Shingles - Past Surgical History HEENT Surgical History: Reports: Oral Surgery Female Surgical History: Reports: D&C Social & Family History - Family History Family Medical History: No Pertinent Family History Cardiac: Reports: ID Oncologic: Reports: Breast - Tobacco Use Tobacco Use Status *Q: Current Every Day Tobacco User Years of Tobacco use: 10 Packs/Tins Daily: 0.3 - Caffeine Use Caffeine Use: Reports: Energy Drinks, Soda - Recreational Drug Use Recreational Drug Use: No - Living Situation & Occupation Living situation: Reports: Single Occupation: Unemployed ED ROS GENERAL - Review of Systems Review Of Systems: See Below Constitutional: Reports: Decreased Appetite (Injury.). Denies: Fever, Chills, Malaise, Weakness, Fatigue, Weight Loss HEENT: Reports: No Symptoms Respiratory: Reports: Shortness of Breath, Wheezing, Cough (History of chronic asthma. Occasional nonproductive cough.) Cardiovascular: Reports: No Symptoms Endocrine: Reports: No Symptoms GI/Abdominal: Reports: No Symptoms : Reports: No Symptoms, Other (Stone menstrual period was 3 weeks ago.) Musculoskeletal: Reports: Joint Pain Skin: Reports: No Symptoms Neurological: Reports: Dizziness. Denies: Confusion, Difficulty Walking, Weakness Psychiatric: Reports: No Symptoms Hematologic/Lymphatic: Reports: No Symptoms Immunologic: Reports: No Symptoms ED EXAM, HEAD INJURY - Physical Exam Exam: See Below Exam Limited By: No Limitations General Appearance: Alert, WD/WN, No Apparent Distress, Other (Temperature is 37.3. Heart rate is 96. Respiratory is 15 with O2 sats of 96% room air BP 146/78.) Head: Scalp Tenderness (Scalp tenderness and mild hematoma just posterior medial to her left ear. It is in the left lateral mid lower occipital scalp. No open wounds.) Nexus Criteria: No: Posterior, Midline Cervical Tenderness, Evidence of Intoxication, Altered Level of Consciousness, Focal Neurological Deficit, Painful Distraction Injuries Eyes: Bilateral Eye: Normal Inspection, PERRL Throat/Mouth: Normal Inspection, Normal Lips, Normal Teeth, Normal Oropharynx, Other Neck: Full Range of Motion, Normal Alignment, Normal Inspection, Paraspinous Muscle Tender (Paraspinal tenderness in the musculature little bit worse on the left side as compared to the right. She has full unopposed range of motion of her.) Respiratory: No Respiratory Distress, Lungs Clear, Normal Breath Sounds, No Accessory Muscle Use, Other Cardiovascular: Normal Peripheral Pulses, Regular Rate, Rhythm, No Edema, No Gallop, No Murmur (No wheezing at this time.), No Rub Extremities: Normal Inspection, Normal Range of Motion, Non-Tender, No Pedal Edema, Other (To K no injuries to the posterior elbows wrists) Neurologic: No Motor/Sensory Deficits, Alert, Normal Mood/Affect, Oriented x 3 Skin: Normal Color, Warm/Dry - [place] Coma Score Best Eye Response ([place]): (4) Open Spontaneously Best Verbal Response ([place]): (5) Oriented Best Motor Response ([place]): (6) Obeys Commands [place] Total: 15 Course - Vital Signs Last Recorded V/S: Last Vital Signs Temp 37.3 C 05/27/20 10:00 Pulse 96 05/27/20 10:00 Resp 15 05/27/20 10:00 BP 146/78 H 05/27/20 10:00 Pulse Ox 96 05/27/20 10:00 - Orders/Labs/Meds Orders: Active Orders 24 hr Category Date Time Status Head wo Cont [CT] Stat Exams 05/27/20 10:20 Taken - Radiology Interpretation Free Text/Narrative:: 29-year-old female presents to the ED after her chair tipped over backwards at the [employer] this morning. She struck her left occipital scalp hard on the table behind her causing her to be dazed. Since that time she developed progressive worsening headache and nausea. She has taken Tylenol and has retained this thus far. Examination reveals hematoma left occipital scalp. No open wounds. Some stiffness in her neck but she has full range of motion with no evidence of bony injury. No injury to her posterior extremities or other body parts identified. Plan CT head to be done. Departure - Departure Time of Disposition: 11:06 Disposition: Home, Self-Care 01 Condition: Fair Clinical Impression: Closed head injury without concussion Qualifiers: Encounter type: initial encounter Qualified Code(s): S09.90XA - Unspecified injury of head, initial encounter - Discharge Information *PRESCRIPTION DRUG MONITORING PROGRAM REVIEWED*: Not Applicable *COPY OF PRESCRIPTION DRUG MONITORING REPORT IN PATIENT TANIYA: Not Applicable Referrals: Nhung Guy PA-C [Primary Care Provider] - Forms: ED Department Discharge Additional Instructions: Evaluation in the emergency room today in regards to blunt force trauma to the left occipital scalp that occurred this morning when your chair tipped over backwards and you struck the left occipital scalp on a corner of a table. No loss of consciousness but certainly dazed with associated development of headache and nausea. Neuro exam was grossly normal. Appears that you have also strained some of the musculature and ligaments in your neck but you have full and opposed range of motion with no clinical evidence of a fracture in the neck bones. No other injuries were identified. CT head was performed and reveals no intracranial bleeding or skull fracture. You have suffered a closed head injury without concussion at this time. You may feel nauseated off and on today. You may experience a sense of being off balance and often eyes have difficulty focusing for a few days. Suggest taking labor easy for the next 48 hours. Particular over the next 12 hours. Suggest fluids mainly to eat no large meals. May use Zofran 4 mg under the tongue every 6 hours as needed for nausea relief. Continue Tylenol or Motrin at this time for headache relief as needed. Sepsis Event Note (ED) - Evaluation Sepsis Screening Result: No Definite Risk - Focused Exam Vital Signs: Vital Signs Temp Pulse Resp BP Pulse Ox 05/27/20 10:00 37.3 C 96 15 146/78 H 96 - My Orders Last 24 Hours: My Active Orders 05/27/20 10:20 Head wo Cont [CT] Stat - Assessment/Plan Last 24 Hours: My Active Orders 05/27/20 10:20 Head wo Cont [CT] Stat
--- NOTE | 2020-05-27 11:11 | CT ---
Head CT Technique: Multiple axial sections through the brain were obtained. Intravenous contrast was not utilized. Reconstructed coronal and sagittal images were obtained. Comparison: No prior intracranial imaging is available. Findings: Ventricles along with basal cisterns and sulci over convexities are within normal limits for the patient's age. No abnormal parenchymal densities are seen. No evidence of intracranial hemorrhage. No midline shift or mass-effect is seen. Bone window settings were reviewed which show no acute calvarial abnormality. Visualized mastoid sinuses and paranasal sinuses show nothing acute. Impression: 1. Nothing acute is seen on noncontrast head CT study. Diagnostic code #1 I agree with preliminary report issued by [facility] report finalized on 05/27/20, 12:01 PM [employer]
== END 2020-05-27 11:25 | disposition home or self-care (01) ==
LOC: JD.ED 09:46
DX: S00.03XA Contusion of scalp, initial encounter (principal); S00.432A Contusion of left ear, initial encounter; S09.90XA Unspecified injury of head, initial encounter; J45.909 Unspecified asthma, uncomplicated; F17.200 Nicotine dependence, unspecified, uncomplicated; Z88.2 Allergy status to sulfonamides; Z88.1 Allergy status to other antibiotic agents; W22.8XXA Striking against or struck by other objects, initial encounter
CPT/HCPCS: 70450; 70450-26; 99283; 99283-25

== ENCOUNTER 2021-09-01 22:11 | Emergency (ER) | payer OTHER ==
[2021-09-01 23:11] VITALS: BP 163/101; PULSE 84
== END 2021-09-01 23:37 | disposition home or self-care (01) ==
LOC: JD.ED 22:11
DX: M79.661 Pain in right lower leg (principal); R60.0 Localized edema; F17.210 Nicotine dependence, cigarettes, uncomplicated; E66.9 Obesity, unspecified; Z68.41 Body mass index [BMI] 40.0-44.9, adult; Z88.2 Allergy status to sulfonamides; Z88.1 Allergy status to other antibiotic agents; Z28.310 Unvaccinated for COVID-19
CPT/HCPCS: 99282; 99283

== ENCOUNTER 2021-12-30 13:36 | Emergency (ER) | payer OTHER ==
[2021-12-30] MEDS ORDERED: Sodium Chloride 0.9% 10 ML Syringe FLUSH PRN (14:22)
[2021-12-30 17:49] VITALS: BP 134/83; PULSE 81
== END 2021-12-30 17:42 | disposition home or self-care (01) ==
LOC: JD.ED 13:36
DX: R07.81 Pleurodynia (principal); J45.909 Unspecified asthma, uncomplicated; F17.210 Nicotine dependence, cigarettes, uncomplicated; E66.9 Obesity, unspecified; Z68.41 Body mass index [BMI] 40.0-44.9, adult; Z88.2 Allergy status to sulfonamides; Z79.899 Other long term (current) drug therapy; Z86.16 Personal history of COVID-19
CPT/HCPCS: 36415; 71046; 80053; 84484; 84703; 85025; 85610; 85730; 86140; 93005; 99285; J3490